=== PATIENT | female | born 1965 | race Caucasian/White ===

== ENCOUNTER 2022-06-11 21:43 | Inpatient (IN) ==
[2022-06-11] MEDS ORDERED: Nitroglycerin 0.4 MG TAB.SUBL SL PRN (21:58)
[2022-06-11] MEDS ORDERED: Iopamidol - 370 500 ML MLS IVP ONE ×2 (21:59→23:54)
[2022-06-11] MEDS ORDERED: Ondansetron 4 MG/2 ML VIAL IVP ONE ×2 (22:05→23:59)
[2022-06-11 22:15] LABS: Basophils % 0.3 %; Eosinophils # 0.1 K/mcL (0.0-0.6); Eosinophils % 1.5 %; Hematocrit 36.1 % (35.3-44.9); Hemoglobin 12.6 g/dL (11.5-15.4); Immature Granulocytes % 0.4 % (0-4); Lymphocytes # 1.4 K/mcL (0.6-4.6); Lymphocytes % 19.4 %; Mean Corpuscular HGB Conc 34.9 g/dL (31.6-35.5); Mean Corpuscular Hemoglobin 31.1 pg (28.0-33.3); Mean Corpuscular Volume 89.1 fL (83.0-100.0); Mean Platelet Volume 10.7 fL (9.4-12.4); Monocytes # 0.5 K/mcL (0.0-1.3); Monocytes % 7.1 %; Neutrophils # 5.2 K/mcL (1.6-8.9); Platelet Count 191 K/mcL (140-400); Red Blood Count 4.05 M/mcL (3.82-4.97); Red Cell Distribution Width 12.5 % (11.5-14.5); Segmented Neutrophils % 71.3 %; White Blood Count 7.3 K/mcL (4.3-11.1)
[2022-06-11 22:22] LABS: Prothrombin Time 10.9 Seconds (9.4-12.1)
[2022-06-11 22:25] LABS: Activated Partial Thrombo Time 29.5 Seconds (26.0-36.0)
[2022-06-11 22:48] LABS: Alanine Aminotransferase 823 Units/L (7-52); Albumin 4.6 g/dL (3.5-5.7); Albumin/Globulin Ratio 1.8 (1.1-2.2); Alkaline Phosphatase 150 Units/L (34-104); Aspartate Amino Transferase 1325 Units/L (13-39); BUN/Creatinine Ratio 20 (6-26); Bilirubin,Direct 1.5 mg/dL (0.0-0.2); Bilirubin,Indirect 3.6 mg/dL (0.0-1.0); Bilirubin,Total 5.1 mg/dL (0.3-1.0); Blood Urea Nitrogen 16 mg/dL (6-20); Calcium 10.6 mg/dL (8.6-10.3); Carbon Dioxide 26 mEq/L (23-29); Chloride 99 mEq/L (98-107); Globulin 2.6 g/dL (2.4-3.5); Glucose 181 mg/dL (70-105); Lipase 36 Units/L (11-82); Osmolality,Calculated 290 (280-300); Potassium 3.7 mEq/L (3.5-5.1); Sodium 137 mEq/L (136-145); Total Protein 7.2 g/dL (6.4-8.9); Troponin I < 0.03 ng/mL (< 0.04); eGFR For African Americans > 60 (> 60); eGFR For Non-African Americans > 60 (> 60)
[2022-06-12] MEDS ORDERED: Metoclopramide 10 MG/2 ML VIAL IVP ONE (01:52)
[2022-06-12] MEDS ORDERED: Naloxone 0.4 MG/ML INJ IVP PRN (02:31)
[2022-06-12] MEDS ORDERED: Ondansetron 4 MG/2 ML VIAL IVP PRN ×2 (02:31→11:45)
[2022-06-12] MEDS ORDERED: Melatonin 3 MG TABLET PO PRN (02:31)
[2022-06-12] MEDS ORDERED: D5% in Water 1,000 ML IVC PRN (03:24)
[2022-06-12] MEDS ORDERED: Dextrose Gel 15 GM/37.5 ML TUBE PO PRN ×2 (03:24)
[2022-06-12] MEDS ORDERED: *HR* Dextrose 50 % in Water (Syg) 50 ML SYRINGE IVP PRN (03:24)
[2022-06-12 03:29] LABS: Acetaminophen < 10 mcg/mL (10-20)
[2022-06-12 03:29] LABS: Hepatitis B Surface Antigen Nonreactive (Nonreactive)
[2022-06-12 03:57] LABS: Hepatitis B Core IgM Nonreactive (Nonreactive)
[2022-06-12 03:58] LABS: Hepatitis C Virus Antibody Nonreactive (Nonreactive)
[2022-06-12 03:59] LABS: Hepatitis A Antibody IgM Nonreactive (Nonreactive)
[2022-06-12] MEDS ORDERED: Saliva Stimulant 44.3ml BOTTLE PO PRN (05:54)
[2022-06-12 06:55] LABS: Basophils % 0.4 %; Eosinophils % 0.2 %; Hematocrit 35.2 % (35.3-44.9); Hemoglobin 12.5 g/dL (11.5-15.4); Immature Granulocytes % 1.1 % (0-4); Lymphocytes # 0.5 K/mcL (0.6-4.6); Lymphocytes % 9.1 %; Mean Corpuscular HGB Conc 35.5 g/dL (31.6-35.5); Mean Corpuscular Hemoglobin 31.3 pg (28.0-33.3); Mean Corpuscular Volume 88.2 fL (83.0-100.0); Mean Platelet Volume 10.7 fL (9.4-12.4); Monocytes # 0.1 K/mcL (0.0-1.3); Monocytes % 1.9 %; Platelet Count 173 K/mcL (140-400); Red Blood Count 3.99 M/mcL (3.82-4.97); Red Cell Distribution Width 12.5 % (11.5-14.5); Segmented Neutrophils % 87.3 %; White Blood Count 5.7 K/mcL (4.3-11.1)
[2022-06-12 07:02] LABS: Prothrombin Time 11.4 Seconds (9.4-12.1)
[2022-06-12 07:05] LABS: Activated Partial Thrombo Time 27.3 Seconds (26.0-36.0)
[2022-06-12 07:33] LABS: Alanine Aminotransferase 1021 Units/L (7-52); Albumin 4.6 g/dL (3.5-5.7); Albumin/Globulin Ratio 1.7 (1.1-2.2); Alkaline Phosphatase 184 Units/L (34-104); Aspartate Amino Transferase 1072 Units/L (13-39); BUN/Creatinine Ratio 16 (6-26); Bilirubin,Total 6.8 mg/dL (0.3-1.0); Blood Urea Nitrogen 15 mg/dL (6-20); Carbon Dioxide 26 mEq/L (23-29); Chloride 96 mEq/L (98-107); Chol/HDL Ratio 2.3 (0-4.9); Cholesterol 158 mg/dL (< 200); Globulin 2.7 g/dL (2.4-3.5); Glucose 254 mg/dL (70-105); HDL Cholesterol 68 mg/dL (40-59); LDL Cholesterol,Calculated 71 mg/dL (< 100); Magnesium 1.7 mg/dL (1.6-2.6); Osmolality,Calculated 289 (280-300); Phosphorous 4.4 mg/dL (2.7-4.5); Potassium 3.4 mEq/L (3.5-5.1); Sodium 135 mEq/L (136-145); Total Protein 7.3 g/dL (6.4-8.9); Triglycerides 95 mg/dL (< 150); eGFR For African Americans > 60 (> 60); eGFR For Non-African Americans > 60 (> 60)
[2022-06-12] MEDS: Insulin LISPRO 300 UNITS/3 ML VIAL SUBQ SCH ×3 (08:00→17:26)
[2022-06-12] MEDS: Piperacillin/Tazobactam 3.375 GM in 0.9 % Sodium Chloride Mini Bag 100 ML IVPB SCH ×2 (09:08→15:39)
[2022-06-12] MEDS ORDERED: *HR* FentaNYL (PF) 100 MCG/2 ML VIAL ONE ×2 (12:50→13:53)
[2022-06-12] MEDS ORDERED: *HR* Propofol 200 MG/20 ML VIAL IVP ONE (12:51)
[2022-06-12] MEDS ORDERED: *HR* Midazolam HCl 2 MG/2 ML VIAL ONE (12:51)
[2022-06-12] MEDS ORDERED: EPHEDrine 50 MG/ML VIAL ONE (13:16)
[2022-06-12] MEDS ORDERED: Lidocaine -MPF 2% 5 ML VIAL ONE (13:40)
[2022-06-12] MEDS ORDERED: Ondansetron 4 MG/2 ML VIAL ONE (13:40)
[2022-06-12] MEDS ORDERED: *HR* Succinylcholine 200 MG/10 ML VIAL IVP ONE (13:40)
[2022-06-12] MEDS ORDERED: Indomethacin 50 MG SUPP.RECT RC ONE (13:59)
[2022-06-12] MEDS: Lactobacillus 1 EACH CAP.SPRINK PO SCH ×2 (15:13→20:59)
[2022-06-12] MEDS: 0.9 % Sodium Chloride 1,000 ML IVC SCH (15:32)
[2022-06-13] MEDS: Piperacillin/Tazobactam 3.375 GM in 0.9 % Sodium Chloride Mini Bag 100 ML IVPB SCH ×4 (00:20→23:31)
[2022-06-13] MEDS: Insulin LISPRO 300 UNITS/3 ML VIAL SUBQ SCH ×5 (00:33→23:40)
[2022-06-13 01:32] LABS: Hematocrit 30.8 % (35.3-44.9); Mean Corpuscular HGB Conc 33.4 g/dL (31.6-35.5); Mean Corpuscular Hemoglobin 30.6 pg (28.0-33.3); Mean Corpuscular Volume 91.4 fL (83.0-100.0); Mean Platelet Volume 10.7 fL (9.4-12.4); Platelet Count 151 K/mcL (140-400); Red Blood Count 3.37 M/mcL (3.82-4.97); Red Cell Distribution Width 12.8 % (11.5-14.5); White Blood Count 7.8 K/mcL (4.3-11.1)
[2022-06-13 01:44] LABS: Hemoglobin 10.3 g/dL (11.5-15.4)
[2022-06-13] MEDS: 0.9 % Sodium Chloride 1,000 ML IVC SCH ×2 (01:59→10:06)
[2022-06-13 02:46] LABS: Alanine Aminotransferase 674 Units/L (7-52); Albumin 3.5 g/dL (3.5-5.7); Albumin/Globulin Ratio 1.5 (1.1-2.2); Alkaline Phosphatase 150 Units/L (34-104); Aspartate Amino Transferase 365 Units/L (13-39); BUN/Creatinine Ratio 17 (6-26); Bilirubin,Direct 0.9 mg/dL (0.0-0.2); Bilirubin,Indirect 3.2 mg/dL (0.0-1.0); Bilirubin,Total 4.1 mg/dL (0.3-1.0); Blood Urea Nitrogen 15 mg/dL (6-20); Calcium 7.7 mg/dL (8.6-10.3); Carbon Dioxide 23 mEq/L (23-29); Chloride 105 mEq/L (98-107); Globulin 2.3 g/dL (2.4-3.5); Glucose 248 mg/dL (70-105); Osmolality,Calculated 291 (280-300); Sodium 136 mEq/L (136-145); Total Protein 5.8 g/dL (6.4-8.9); eGFR For African Americans > 60 (> 60); eGFR For Non-African Americans > 60 (> 60)
[2022-06-13] MEDS ORDERED: *HR* Promethazine 25 MG/ML VIAL IM ONE (06:17)
[2022-06-13] MEDS ORDERED: *HR* LORazepam Oral Conc 2 MG/ML SL ONE (07:27)
[2022-06-13] MEDS ORDERED: Calcium Gluconate 1gm/50mL 1 GM/50 ML BAG IVPB ONE (07:29)
[2022-06-13] MEDS: Lactobacillus 1 EACH CAP.SPRINK PO SCH ×2 (07:48→20:00)
[2022-06-13] MEDS ORDERED: Scopolamine Patch 1.5 MG PATCH.TD72 TD ONE (09:08)
[2022-06-13] MEDS ORDERED: Famotidine 20 MG/2 ML VIAL IVP ONE (19:05)
[2022-06-13] MEDS ORDERED: *HR* FentaNYL (PF) 100 MCG/2 ML VIAL ONE (19:40)
[2022-06-13] MEDS ORDERED: *HR* Propofol 200 MG/20 ML VIAL IVP ONE (19:40)
[2022-06-13] MEDS ORDERED: *HR* Midazolam HCl 2 MG/2 ML VIAL ONE (19:40)
[2022-06-13] MEDS ORDERED: Lidocaine HCL 4 ML Topical Solution (Laryng-O-Jet Kit Sterile Pak) TP ONE (19:41)
[2022-06-13] MEDS ORDERED: Lidocaine -MPF 2% 5 ML VIAL ONE (19:42)
[2022-06-13] MEDS ORDERED: *HR* Rocuronium Bromide 50 MG/5 ML VIAL ONE ×2 (19:43→21:18)
[2022-06-13] MEDS ORDERED: Ondansetron 4 MG/2 ML VIAL IVP ONE (19:50)
[2022-06-13] MEDS ORDERED: *HR* HYDROmorphone PF 0.5 MG/0.5 ML SYRINGE IVP PRN (20:45)
[2022-06-13] MEDS ORDERED: Ondansetron 4 MG/2 ML VIAL IVP PRN (20:45)
[2022-06-13] MEDS ORDERED: *HR* HYDROMORPHONE 2 MG/ML VIAL ONE (21:17)
[2022-06-13] MEDS ORDERED: Sugammadex Sodium 200 MG/2 ML VIAL IV ONE (21:31)
[2022-06-13] MEDS ORDERED: Lidocaine/EPI 1:100k 2% 20 ML VIAL ONE (22:43)
[2022-06-14] MEDS: Insulin LISPRO 300 UNITS/3 ML VIAL SUBQ SCH (06:34)
[2022-06-14] MEDS ORDERED: Ondansetron 4 MG/2 ML VIAL IVP PRN (07:35)
[2022-06-14] MEDS ORDERED: Melatonin 3 MG TABLET PO PRN (07:35)
[2022-06-14] MEDS ORDERED: Nitroglycerin 0.4 MG TAB.SUBL SL PRN (07:35)
[2022-06-14] MEDS ORDERED: Naloxone 0.4 MG/ML INJ IVP PRN (07:35)
[2022-06-14] MEDS ORDERED: D5% in Water 1,000 ML IVC PRN (07:35)
[2022-06-14] MEDS ORDERED: *HR* Dextrose 50 % in Water (Syg) 50 ML SYRINGE IVP PRN (07:35)
[2022-06-14] MEDS ORDERED: Saliva Stimulant 44.3ml BOTTLE PO PRN (07:35)
[2022-06-14] MEDS ORDERED: Dextrose Gel 15 GM/37.5 ML TUBE PO PRN ×2 (07:35)
[2022-06-14] MEDS ORDERED: Piperacillin/Tazobactam 3.375 GM in 0.9 % Sodium Chloride Mini Bag 100 ML IVPB SCH (08:00)
[2022-06-14] MEDS ORDERED: Lactobacillus 1 EACH CAP.SPRINK PO SCH (09:00)
[2022-06-14 09:59] LABS: Albumin 3.8 g/dL (3.5-5.7); Albumin/Globulin Ratio 1.7 (1.1-2.2); Bilirubin,Direct 0.3 mg/dL (0.0-0.2); Bilirubin,Indirect 1.5 mg/dL (0.0-1.0); Bilirubin,Total 1.8 mg/dL (0.3-1.0); Globulin 2.3 g/dL (2.4-3.5); Total Protein 6.1 g/dL (6.4-8.9)
[2022-06-14] MEDS ORDERED: Insulin LISPRO 300 UNITS/3 ML VIAL SUBQ SCH (12:00)
[2022-06-14 13:25] VITALS: BP 170/88; PULSE 64; TEMP 98.3; O2SAT 93
== END 2022-06-14 15:08 | disposition home or self-care (01) | DRG 419 ==
LOC: EMEROOARM 21:43 → SUATTDRO 06-12 10:45 → 3BNU 06-12 10:45
PROVIDERS: ADMIT Internal Medicine; ATTEND Internal Medicine